=== PATIENT | female | born 1985 | race Caucasian/White ===

== ENCOUNTER 2025-03-17 05:35 | Emergency (ER) | payer OTHER, SELFPAY ==
--- NOTE | 2025-03-17 05:40 | ED_ITS ---
Discharge Plan Disposition Patient Disposition: Home, Self-Care Prescriptions Prescriptions: New ondansetron HCl 4 mg tablet 4 mg PO Q8H PRN (Reason: nausea and vomiting) 5 Days Qty: 30 0RF ondansetron HCl 4 mg tablet 4 mg PO Q8H PRN (Reason: nausea and vomiting) 5 Days Qty: 30 0RF Referrals Follow up/Referrals: Provider,Referral, MD [Primary Care Provider] - See instructions Activity Restrictions/Add. Instructions Additional Instructions/Restrictions: Please take Zofran as needed for nausea and vomiting. Please follow-up with your primary care provider. Please return to the emergency department if you develop any new or worsening symptoms or become concerned for your health. Clinical Impressions Clinical Impression: Nausea vomiting and diarrhea Stand Alone Forms Stand Alone Forms: Work/School Release Instructions Patient Instructions: DI for Acute Abdominal Pain Discharge ED Provider: Gomez Qureshi Adult HPI General Chief complaint: Abdominal Pain Stated complaint: abd pain, vomiting, diarrhea Time Seen by Provider: 03/17/25 05:39 History of Present Illness HPI narrative: 40-year-old female with history of prior cholecystectomy and tubal ligation presents for nausea vomiting and diarrhea with upper abdominal pain, worsening since yesterday. She reports quite severe abdominal pain consistent with when her gallbladder was bad. She denies history of pancreatic disorder. Not sure if she ate anything that might of caused this. Reports no blood in the diarrhea or emesis. Reports that she has not been really keeping any down for several hours. Related Data Previous Rx's ?Medication ?Instructions ?Recorded ondansetron HCl 4 mg tablet 4 mg PO Q8H PRN nausea and 03/17/25 vomiting 5 days #30 tabs ondansetron HCl 4 mg tablet 4 mg PO Q8H PRN nausea and 03/17/25 vomiting 5 days #30 tabs Allergies Allergy/AdvReac Type Severity Reaction Status Date / Time No Known Allergies Allergy Verified 03/17/25 05:50 [facility] Disclaimer: The information contained in this section may have been updated after the patient was seen, as this information can be updated by other users. Social History Smoking Status: Never smoker alcohol intake: never current occupational status: employed Travel in the last 8 weeks?: None ROS Obtained: Yes All systems reviewed & no additional complaints except as documented Physical Exam General General appearance: alert and in no apparent distress Head Head exam: atraumatic and normocephalic Eye Eye exam: Present normal appearance, PERRL and EOMI ENT ENT exam: Present normal oropharynx and normal external ear exam Neck Neck exam: Present normal inspection and full ROM Chest Chest inspection: Present normal inspection and symmetric chest wall rise; Absent tenderness Respiratory Respiratory exam: Present normal lung sounds bilaterally; Absent respiratory distress Cardiovascular Cardiovascular exam: Present regular rate and normal rhythm Abdominal Exam Abdominal exam: Present soft and tenderness (Moderate, upper abdominal); Absent distention or guarding Extremities Exam Extremities exam: Present normal inspection; Absent edema or joint swelling Back Exam Back exam: Present normal inspection; Absent tenderness Neurological Exam Neurological exam: Present alert and oriented X3; Absent motor sensory deficit Psychiatric Psychiatric exam: Present normal affect and normal mood Skin Skin exam: Present warm, dry and normal color Lymphatic Lymphatic Findings: no adenopathy Medical Decision Making Medical Records Medical records reviewed: Yes I reviewed the patient's medical records. Screening: Per USPSTF and CDC recommendations, given the prevalence of disease in our region, it is our hospital?s policy to screen for HIV and viral Hepatitis for all patients aged 18 and over and those with ongoing risk factors. Juliano Inquiry Pt receiving controlled substance: No Juliano was queried for this patient: No Vital Signs: 03/17/25 05:45 03/17/25 05:53 Temperature 98.9 F Temperature Source Oral Pulse Rate 100 H Pulse Rate [Left] 100 H Respiratory Rate 20 18 Blood Pressure 142/92 H Blood Pressure [Right Arm] 142/92 H Blood Pressure Mean [Right Arm] 108 Blood Pressure Source Automatic Cuff Blood Pressure Source [Right Arm] Automatic Cuff Blood Pressure Position Sitting 02 Sat by Pulse Oximetry 100 99 Oxygen Delivery Method Room Air Room Air Lab Data Lab results reviewed: Yes I reviewed the patient's lab results. Lab Results 03/17/25 05:53: WBC 11.5 H, RBC 5.09, Hgb 14.5, Hct 43.3, MCV 85.1, MCH 28.5, MCHC 33.5, RDW 13.5, Plt Count 245, MPV 10.0, Neut % (Auto) 90.9 H, Lymph % (Auto) 4.4 L, [place] % (Auto) 3.8, Eos % (Auto) 0.3, Baso % (Auto) 0.3, Neut # (Auto) 10.4 H, Lymph # (Auto) 0.5 L, [place] # (Auto) 0.4, Eos # (Auto) 0.0, Baso # (Auto) 0.0, Sodium 138, Potassium 4.0, Chloride 105, Carbon Dioxide 25, Anion Gap 12.0, BUN 16, Creatinine 0.80, Estimated Creat Clear 144, Estimated GFR 79, Est GFR ( Amer) 95, Glucose 110 H, Calcium 9.1, Magnesium 1.9, Total Bilirubin 1.3, AST 24, ALT 28, Alkaline Phosphatase 48, Total Protein 7.8, Albumin 5.0, Globulin 2.8, Albumin/Globulin Ratio 1.8 03/17/25 05:53 03/17/25 05:53 Orders (Tests/Meds): ED MEDICATIONS Generic Name Dose Route Start Last Admin Trade Name Freq PRN Reason Stop Dose Admin Lactated Ringer's 1,000 mls @ 999 mls/hr 03/17/25 05:45 03/17/25 05:57 Lactated Ringer's 1000 Ml Bag IV 03/17/25 06:45 999 mls/hr .Q1H1M CONTRERAS Administration Discontinued Medications Generic Name Dose Route Start Last Admin Trade Name Freq PRN Reason Stop Dose Admin Acetaminophen 1,000 mg 03/17/25 05:44 03/17/25 05:57 Acetaminophen 500mg Tab PO 03/17/25 05:45 1,000 mg ONCE ONE Administration Ketorolac Tromethamine 30 mg 03/17/25 05:44 03/17/25 05:58 Ketorolac 30mg/Ml Vial IV 03/17/25 05:45 30 mg ONCE ONE Administration Ondansetron HCl 4 mg 03/17/25 05:44 03/17/25 05:58 Ondansetron 4mg/2ml Vial IV 03/17/25 05:45 4 mg ONCE ONE Administration ORDERS Category Date Time Status CBC w/Auto Diff [Complete Blood Count Auto Diff] Stat Lab 03/17/25 05:53 Results CMP [Comprehensive Metabolic Panel] Stat Lab 03/17/25 05:53 Completed HIV Combo Stat Lab 03/17/25 05:53 Received Hepatitis C Ab Qual. W/ RFX Stat Lab 03/17/25 05:53 Received Lipase Stat Lab 03/17/25 05:53 Received Magnesium Stat Lab 03/17/25 05:53 Completed Medical Decision Narrative: 40-year-old female with history of cholecystectomy and tubal ligation presents for several hours of worsening abdominal pain nausea and vomiting and diarrhea.. History was obtained via interactive discussion with patient. On arrival, patient is [afebrile, hemodynamically stable, satting appropriately, alert, oriented x4, GCS 15], moving all extremities spontaneously. Full physical exam performed and significant for mild upper abdominal tenderness, dry mucous membranes. Differential includes but is not limited to gastroenteritis, food poisoning, dehydration, pancreatitis. Patient was given Tylenol Toradol Zofran 1 L IV fluid bolus for symptomatic management and correction of underlying abnormalities. Workup initiated including CBC CMP lipase mag. On re-evaluation, patient [remains afebrile, HD stable.] Laboratory workup independently interpreted by me and significant for minimal leukocytosis, no significant electrolyte derangement, negative lipase. CT imaging was considered, but deemed unnecessary due to history and physical exam. Given patient history, exam and workup, patient's presentation most likely represents gastroenteritis/food poisoning. Patient was discharged with prescription for Zofran and given instructions regarding symptomatic care. Return precautions given. Procedures Risk/Benefits of Procedure(s) Were Explained: Yes Critical Care Critical Care Time Critical Care Time: No
[2025-03-17 05:45] VITALS: BP 142/92; PULSE 100; RESP 20; TEMP 37.2; O2SAT 100; BMI 34.4
[2025-03-17 05:53] VITALS: BP 142/92; PULSE 100; RESP 18; O2SAT 99
[2025-03-17] MEDS: LACTATED RINGERS 1000ML 1,000 ML 999 ML IV (05:57)
[2025-03-17] MEDS: ACETAMINOPHEN 500MG TAB 1000 MG PO (05:57)
[2025-03-17] MEDS: ONDANSETRON 4MG/2ML VIAL 4 MG IV (05:58)
[2025-03-17] MEDS: KETOROLAC 30MG/ML VIAL 30 MG IV (05:58)
[2025-03-17 05:59] LABS: Basophils % 0.3 % (0.1-2.0); Eosinophils % 0.3 % (0.1-12.0); Hematocrit 43.3 % (37.0-47.0); Hemoglobin 14.5 g/dL (12.2-16.2); Immature Granulocytes # 0.03 10^3uL; Immature Granulocytes % 0.3 %; Lymphocytes # 0.5 K/mm3 (0.7-4.5); Lymphocytes % 4.4 % (10-50); Mean Corpuscular HGB Conc 33.5 g/dL (31.8-35.4); Mean Corpuscular Hemoglobin 28.5 pg (27.0-31.2); Mean Corpuscular Volume 85.1 fl (81-99); Monocytes # 0.4 K/mm3 (0.1-1.0); Monocytes % 3.8 % (1.7-9.3); Neutrophils # 10.4 K/mm3 (1.8-7.8); Neutrophils % 90.9 % (37.0-80.0); Nucleated Red Blood Cells # 0 10^3/uL; Nucleated Red Blood Cells % 0 %; Platelet Count 245 K/mm3 (142-424); Red Blood Count 5.09 M/mm3 (4.20-5.40); Red Cell Distribution Width 13.5 % (11.5-17.5); Red Cell Distribution Width-SD 41.9 fL; White Blood Count 11.5 K/mm3 (4.8-10.8)
[2025-03-17 06:02] LABS: MANUAL DIFFERENTIAL MANUAL DIFFERENTIAL (MANUAL DIFF)
[2025-03-17 06:07] LABS: Alanine Aminotransferase 28 U/L (12-78); Albumin/Globulin Ratio 1.8 (1.1-1.8); Alkaline Phosphatase 48 U/L (38-126); Aspartate Amino Transferase 24 U/L (14-36); Bilirubin,Total 1.3 mg/dl (0.2-1.3); Blood Urea Nitrogen 16 mg/dl (7-17); Calcium 9.1 mg/dl (8.4-10.2); Carbon Dioxide 25 mmol/L (22.0-30.0); Chloride 105 mmol/L (98-107); Creatinine Clearance Estimated 144 mL/min (50-200); Estimated Glomerular Filt Rate 79 ml/min (>60); GFR (African American) 95 ML/MIN (>60); Globulin 2.8 g/dL (1.3-3.2); Glucose 110 mg/dl (74-100); Magnesium 1.9 mg/dl (1.6-2.3); Sodium 138 mmol/L (136-145); Total Protein,Serum 7.8 g/dl (6.3-8.2)
[2025-03-17 06:26] LABS: Lipase 82 U/L (23-300)
[2025-03-17 06:43] VITALS: BP 114/74; PULSE 89; RESP 16; TEMP 36.8; O2SAT 94
[2025-03-17 08:05] LABS: HIV Combo NEGATIVE (Negative); Lymphocytes % 2 % (10-50); Monocytes % 7 % (2-9); Neutrophils % 91 % (42-76); Platelet Estimate Normal; RBC Morphology Normal; Total Cells Counted 100
[2025-03-17 08:13] LABS: Hepatitis C Ab Qual. W/ RFX NEGATIVE (Negative)
== END 2025-03-17 06:58 | disposition home or self-care (01) ==
LOC: ER 06:52
PROVIDERS: Emergency Provider Emergency Medicine
DX: R10.10 Upper abdominal pain, unspecified (principal); R11.2 Nausea with vomiting, unspecified; R19.7 Diarrhea, unspecified; Z11.59 Encounter for screening for other viral diseases; Z11.4 Encounter for screening for human immunodeficiency virus [HIV]
CPT/HCPCS: 80053; 83690; 83735; 85007; 85025; 85027; 86803; 87389; 96361; 96374; 96375; 99284; J1885; J2405; J7120